=== PATIENT | female | born 1985 | race African-American/Black ===

== ENCOUNTER 2017-07-16 15:38 | Inpatient (IN) | payer OTHER ==
[~2017-07-16] VITALS: Ht 154.9 cm; Wt 82.6 kg
--- NOTE | 2017-07-16 18:20 | History & Physical ---
General Information and HPI MD Statement: I have seen and personally examined LIANA JARAMILLO and documented this H&P. The patient is a 32 year old female at 38 weeks and 1 days gestation who presented with a chief complaint of srom CLEAR FLUIUD. 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 EENTM: Denies: blurred vision, double vision, visual changes. Cardiovascular: Denies: chest pain. Respiratory: Denies: short of breath. GI: Denies: abdominal pain, diarrhea, nausea, vomiting. Skin: Reports: no symptoms. Neurological/Psychological: Denies: anxiety, depressed. Exam & Diagnostic Data Last 24 Hrs of Vital Signs/I&O VSS Obstetric Exam Wgt Gained During : 37 lbs Pelvimetry: SEEMS ADEQUATE Dilation (cm): 2 Effacement (%): 50 Station: -2 Membranes: SROM Fluid: clear Fundal Height (cm): 40 Multiple Gestation? No Contractions: Q 5 MIN #1 - FHR Baseline: 135 Category: 1 Estimated Weight: 3800G Presentation: VTX Patient for Induction? No Physical Exam General Appearance Alert, Oriented X3, Cooperative, No Acute Distress Skin No Rashes HEENT Atraumatic Neck Supple Cardiovascular Regular Rate Lungs Clear to Auscultation Abdomen Soft Labs Blood Type & Rh: O POS Antibody Screen: NEG Hct/Hgb & Platelets #1: 43/13.5/228 Hct/Hgb & Platelets #2: 32.4/9.9/230 Rubella: imm VDRL #1: nr VDRL #2: nr HbsAg: neg HIV #1: nr HIV #2 nr 1 Hr P Group B Strep: pos Initial Ultrasound: 12/2016 8w 2d Anatomy Ultrasound: 03/17/17 normal with fibroids Ultrasound for EFW: 07/08/17 71%tile Genetic Testing: NT and cf DNA normal Last 24 Hrs of Labs/Reyes: Laboratory Tests 07/16/17 1800: CBC w Diff Pending, WBC Pending, RBC Pending, Hgb Pending, Hct Pending, MCV Pending, MCH Pending, MCHC Pending, RDW Pending, Plt Count Pending, MPV Pending 07/16/17 1625: Membrane Rupture POSITIVE, Urine Color YEL, Urine Clarity HAZY H, Urine pH 7.0, Ur Specific [place] <= 1.005, Urine Protein NEG, Urine Ketones NEG, Urine Nitrite NEG, Urine Bilirubin NEG, Urine Urobilinogen 0.2, Ur Leukocyte Esterase SMALL H, Ur Microscopic SEDIMENT EXAMINED, Urine WBC RARE, Ur Epithelial Cells FEW, Urine Bacteria RARE H, Urine Hemoglobin TRACE-INTACT, Urine Glucose NEG Assessment/Plan Assessment/Plan: iup at term SROM fibroid uterus As Ranked By This Provider Problem List: 1. Core Measures Venous Thromboembolism VTE Risk Factors / No Mechanical VTE Prophylaxis d/t LowRisk-No Interven Req'd No VTE Pharm Prophylaxis d/t LowRisk-No Interven Req'd Attending MD Review Statement Attending Statement Attending MD Statement: examined this patient, discussed with family, discussed w/nursing
[2017-07-16 18:58] LABS: ABSOLUTE BASOPHIL COUNT 0 /CUMM (0.0-0.2); ABSOLUTE EOSINOPHIL COUNT 0 /CUMM (0.0-0.7); ABSOLUTE GRANULOCYTE CT 5.8 /CUMM (1.4-6.5); ABSOLUTE LYMPH COUNT 1.4 /CUMM (1.2-3.4); BASOPHIL % 0.4 % (0.0-2.0); EOSINOPHIL % 0.5 % (0-5); GRANULOCYTE % 70.3 % (42.2-75.2); HEMATOCRIT 36.9 % (37-47); MEAN CORPUSCULAR HGB 30.1 PG (27.0-31.0); MEAN CORPUSCULAR HGB CONC 33.3 G/DL (33.0-37.0); MEAN CORPUSCULAR VOLUME 90.4 FL (81.0-99.0); PLATELET COUNT 201 /CUMM (130-400); RBC DISTRIBUTION WIDTH 14.8 % (11.5-14.5); RED BLOOD CELL CT 4.08 /CUMM (4.20-5.40); WHITE BLOOD CELL COUNT 8.3 /CUMM (4.8-10.8)
[2017-07-16 23:09] VITALS: BP 119/75
--- NOTE | 2017-07-17 08:12 | PN- OBGYN ---
Surgical Brief Attending Note Brief Attending Note: Resume care from 7:30AM 32yo, 38 6/7wks, SROM last night, pt fully dialted at 7am, pt is comfortable with epidural. GBS positive, she received antibiotics. multiple fibroids( largest one 6 cm), u/s show fibroids not block the canal, EFW 7lbs 71%. on TOCO: ctxs q2-4 min, FHR [id number], moderate variability, + acels, no decels will let pt labor down, monitor closely
--- NOTE | 2017-07-17 09:42 | PN- OBGYN ---
Surgical Brief Attending Note Brief Attending Note: pt is comfortable with epidural. on TOCO: ctxs q 2-5 min, FHR assuring cervix 10/100/0 ( per RN) will start pitocin augmentation, monitor closely
--- NOTE | 2017-07-17 13:00 | Labor & Delivery Summary ---
Delivery Summary Vaginal Delivery: Vaginal: vertex Episiotomy/Lacerations: Episiotomy/Lacerations: 2ND DEGREE Type: 2ND DEGREE Repair: 3-0 vicryl Anesthesia: epidural Placenta: Placenta: spontanteous, normal, 3 vessel Anesthesia: epidural Baby's Weight: 2920G Apgars - 1 Min: 6 Apgars - 5 Min: 9 Additional Comments: Patient fully dilated, allow laboring down, pushed well, spontaneously delivered a viable male as cephalic presentation, JOE position, head delivered atraumatically, followed by shoulder and rest of body without difficulties, cord clamped and cut, baby handed off to warmer for assessment. Placenta delivered spontaneously, intact, three-vessel cord. Second-degree laceration repaired with 3-0 Vicryl, EBL 110ml. patient tolerated the procedure well, lap and instruments counts were correct, patient at recovery room in stable condition
[2017-07-18 09:02] LABS: ABSOLUTE BASOPHIL COUNT 0 /CUMM (0.0-0.2); ABSOLUTE EOSINOPHIL COUNT 0.1 /CUMM (0.0-0.7); ABSOLUTE GRANULOCYTE CT 9.9 /CUMM (1.4-6.5); ABSOLUTE LYMPH COUNT 1.9 /CUMM (1.2-3.4); ABSOLUTE MONOCYTE COUNT 1.1 /CUMM (0.10-0.60); BASOPHIL % 0.2 % (0.0-2.0); EOSINOPHIL % 0.7 % (0-5); GRANULOCYTE % 76.3 % (42.2-75.2); HEMATOCRIT 36.1 % (37-47); MEAN CORPUSCULAR HGB 30.3 PG (27.0-31.0); MEAN CORPUSCULAR HGB CONC 33.2 G/DL (33.0-37.0); MEAN CORPUSCULAR VOLUME 91.3 FL (81.0-99.0); MEAN PLATELET VOLUME 8.2 FL (7.4-10.4); PLATELET COUNT 182 /CUMM (130-400); RBC DISTRIBUTION WIDTH 14.6 % (11.5-14.5); RED BLOOD CELL CT 3.96 /CUMM (4.20-5.40)
[2017-07-18 09:11] LABS: WHITE BLOOD CELL COUNT 12.9 /CUMM (4.8-10.8)
--- NOTE | 2017-07-18 10:07 | PN- Post Delivery/GYN ---
Subjective Subjective: doing well, no complaints, tolerate diet, void without difficulties Review of Systems Constitutional: Reports: no symptoms. Cardiovascular: Reports: no symptoms. Respiratory: Reports: no symptoms. Gastrointestinal: Reports: no symptoms. Genitourinary: Reports: see HPI. Hematologic/Endocrine: Reports: no symptoms. Immunologic/Allergic: Reports: no symptoms. All Other Systems: Reviewed and Negative Objective Last 24 Hrs of Vital Signs/I&O VSS Physical Exam: VSS General: NAD Cv RRR Lungs CTA B/L Abdomen: soft, nontender, uterus firm, fundus at umbilical level, lochia mild Ext: edema(+), DCT (-) Current Medications: Current Medications Sig/[place] Start time Last Medication Dose Route Stop Time Status Admin Acetaminophen 650 MG Q4P PRN 07/17 1215 AC PO Acetaminophen 1,000 MG Q6P PRN 07/17 0515 DC 07/17 N/A 1 UNIT IV 0517 Dextrose 1.5 GM ONCE ONE 07/17 1830 CAN PO 07/17 1831 Docusate Sodium 100 MG BID PRN 07/17 1215 AC PO Ibuprofen 800 MG Q6P PRN 07/17 1215 AC / PO 0503 Lactated Ringer's 1,000 ML Q8H 07/16 1730 DC 07/17 IV 0205 Oxycodone/ 1 TAB Q3P PRN 07/17 1215 AC 07/18 Acetaminophen PO 0136 Oxytocin 20 UNITS Q5H 07/17 1215 DC 07/17 Lactated Ringer's 1,000 ML IV 07/17 1714 1215 Oxytocin 30 UNITS PER PROTOCL 07/17 0930 DC 07/17 Lactated Ringer's 500 ML IV 07/18 0929 0932 Penicillin G 2.5 MU Q4H 07/16 1730 DC 07/17 Potassium IV 0932 Dextrose/Water 100 ML Last 24 Hrs of Labs/[place]: Laboratory Tests 07/18/17 0730: CBC w Diff NO MAN DIFF REQ, RBC 3.96 L, MCV 91.3, MCH 30.3, MCHC 33.2, RDW 14.6 H, MPV 8.2, Gran % 76.3 H, Lymphocytes % 14.4 L, Monocytes % 8.4, Eosinophils % 0.7, Basophils % 0.2, Absolute Granulocytes 9.9 H, Absolute Lymphocytes 1.9, Absolute Monocytes 1.1 H, Absolute Eosinophils 0.1, Absolute Basophils 0 Assessment/Plan Assessment/Plan 32yo, s/p ,PPD#1 1. encourage ambualtion and 2.RT PP care Problem List: 1. Attending MD Review Statement Attending Statement Attending MD Statement: examined this patient, discussed with nursing
[2017-07-19] MEDS ORDERED: IBUPROFEN800 M1 PO (08:16)
--- NOTE | 2017-07-19 09:14 | PN- OBGYN ---
Surgical Brief Attending Note Brief Attending Note: PPD#2 pt is ambulating, no complaints, tolerate diet, void without difficulties PE: VSS CV RRR Lungs CTA B/L Abdomen: soft, nontender, uterus firm, fundus below umbilicus. lochia mild Ext: DCT (-) A/P: 32yo, s/p , PPD#2 1. encourage ambualtion and 2. RT PP care 3. will d/c home, f/u in office in 2wks and 6 wks, discharge instructions given.
== END 2017-07-19 11:00 | DRG 560 ==
LOC: CBCO 15:38 → GNO 16:57
PROVIDERS: Obstetrics & Gynecology
PROC: 0KQM0ZZ Repair Perineum Muscle, Open Approach (ICD-10-PCS; principal; 2017-07-17)
PROC: 10E0XZZ Delivery of Products of Conception, External Approach (ICD-10-PCS; 2017-07-17)
DX: O70.1 Second degree perineal laceration during delivery (principal); Z3A.38 38 weeks gestation of pregnancy; Z37.0 Single live birth; O75.2 Pyrexia during labor, not elsewhere classified; O98.82 Other maternal infectious and parasitic diseases complicating childbirth; B95.1 Streptococcus, group B, as the cause of diseases classified elsewhere
CPT/HCPCS: GNOP; GNOS; 81001; 84112; 86920; 87086; J0131; J0595; J7120